=== PATIENT | male | born 1970 | race African-American/Black ===

== ENCOUNTER 2017-11-08 03:43 | Emergency (ER) | payer OTHER ==
[2017-11-08] MEDS ORDERED: LORazepam 2 MG/ML INJ IV STA (03:49)
[2017-11-08] MEDS ORDERED: SODIUM CHLORIDE 0.9% 1,000 ML IV STA (03:50)
[2017-11-08] MEDS ORDERED: DIPH,PERTUS(ACELL)TETVAC-LF 0.5 ML VIAL IM ONE (03:51)
[2017-11-08 03:55] VITALS: RESP 18; TEMP 98.6
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
[2017-11-08] MEDS ORDERED: SODIUM CHLORIDE 0.9% 2,000 ML IV ONE (04:44)
[2017-11-08 05:03] LABS: INR 1.2 (<1.2); Partial Thromboplastin Time 22.5 sec (22.0-30.0); Prothrombin Time 11.8 sec (9.0-12.0)
[2017-11-08 05:05] LABS: Basophils # (A) 0.1 k/uL (0-0.2); Basophils % (A) 1 %; Eosinophils # (A) 0.1 k/uL (0-0.7); Eosinophils % (A) 1 %; HCT 47.5 % (39.0-53.0); HGB 13.7 gm/dL (13.0-17.5); Hypochromasia Marked; Lymphocytes # (A) 2.6 k/uL (1.0-4.8); Lymphocytes % (A) 37 %; MCH 28.8 pg (25.0-35.0); MCHC 28.9 g/dL (31.0-37.0); MCV 99.6 fL (80.0-100.0); Mean Platelet Volume 8.1; Monocytes # (A) 0.3 k/uL (0-1.0); Monocytes % (A) 5 %; Neutrophils # (A) 3.8 k/uL (1.3-7.7); Neutrophils % (A) 54 %; Platelet Count 233 k/uL (150-450); RBC 4.77 m/uL (4.30-5.90); RDW 13.1 % (11.5-15.5); WBC 7.1 k/uL (3.8-10.6)
--- NOTE | 2017-11-08 05:07 | CT ---
INDICATION: Altered level of consciousness TECHNIQUE: CT acquisition is performed through the brain. Sagittal and coronal reformatted images are provided. No IV contrast is administered. DOSE INFORMATION: CTDIvol 60.30 mGy; DLP 1108.40 mGy-cm. One or more of the following dose reduction techniques were used: automated exposure control, adjustment of the mA and/or kV according to patient size, use of iterative reconstruction technique. COMPARISON: None. FINDINGS: The calvarium is intact. The visualized paranasal sinuses and mastoid air cells are clear. There is no evidence of acute intracranial hemorrhage or abnormal extra- axial fluid collection. There is no mass effect or midline shift. Sulci, ventricles, and basal cisterns are normal in size and configuration. The hanks-white matter differentiation is preserved. IMPRESSION: 1. No CT evidence of acute intracranial process.
[2017-11-08 05:13] LABS: ALT <6 U/L (21-72); AST 74 U/L (17-59); Acetaminophen <10.0 ug/mL; Albumin 5.7 g/dL (3.5-5.0); Alcohol <10 mg/dL; Alkaline Phosphatase 66 U/L (38-126); Anion Gap 31 mmol/L; Blood Urea Nitrogen 17 mg/dL (9-20); Calcium 10.2 mg/dL (8.4-10.2); Chloride 105 mmol/L (98-107); Glucose 95 mg/dL (74-99); Magnesium 2.9 mg/dL (1.6-2.3); Salicylate <1.0 mg/dL; Sodium 142 mmol/L (137-145); Total Bilirubin 1.6 mg/dL (0.2-1.3); Total Protein 9.5 g/dL (6.3-8.2)
--- NOTE | 2017-11-08 05:37 | XR ---
RIGHT HIP 2 VIEWS INDICATION: Right hip pain COMPARISON: None FINDINGS: AP and lateral views of the right hip are obtained. Bony structures are intact. Bone mineralization is within normal limits. No hip dislocation. Joint spaces are preserved. Soft tissues are within normal limits. IMPRESSION: No acute fracture or dislocation identified.
--- NOTE | 2017-11-08 05:39 | XR ---
RIGHT KNEE 2 VIEWS INDICATION: Right knee pain COMPARISON: None FINDINGS: AP and lateral views of the right knee are obtained. There is no evidence of acute fracture or malalignment. Ossification adjacent to the medial femoral condyle may reflect old MCL injury. 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 There are degenerative changes of the proximal tibiofibular joint. There is no significant joint effusion. Soft tissues are unremarkable. IMPRESSION: 1. No acute fracture or subluxation identified. 2. 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 3. Ossification adjacent to the medial femoral condyle possibly reflecting old MCL injury. [employer] 11/08/17 05:42 Call Nurse disregard call request
[2017-11-08 05:40] LABS: Creatine Kinase MB 6.3 ng/mL (0.0-2.4); Troponin I 0.028 ng/mL (0.000-0.034)
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
[2017-11-08 06:07] VITALS: BP 105/83; PULSE 82
== END 2017-11-08 07:01 ==
LOC: EC 03:43
DX: S71.111A Laceration without foreign body, right thigh, initial encounter (principal); S90.411A Abrasion, right great toe, initial encounter; S80.211A Abrasion, right knee, initial encounter; R41.82 Altered mental status, unspecified; R45.1 Restlessness and agitation; T40.5X5A Adverse effect of cocaine, initial encounter; R00.0 Tachycardia, unspecified; R10.9 Unspecified abdominal pain; R07.2 Precordial pain; F20.9 Schizophrenia, unspecified; Z23 Encounter for immunization; X58.XXXA Exposure to other specified factors, initial encounter; Y93.72 Activity, wrestling; Y92.009 Unspecified place in unspecified non-institutional (private) residence as the place of occurrence of the external cause
CPT/HCPCS: 36415; 93005; 80053; 82550; 82553; 83735; 84484; 85025; 85610; 85730; 83520 ×2; 73501; 73560; 71045; 70450; 90715; 99285; 96374; 96361 ×3; 90471; G0480; J2060; 80320